=== PATIENT | female | born 1970 | race Two or more races ===

== ENCOUNTER 2023-03-29 14:20 | Emergency (ER) | payer OTHER, SELFPAY ==
--- NOTE | 2023-03-29 14:47 | ED.GENADULT ---
[facility] - General Adult General Chief complaint: Eye Problems Stated complaint: eye problem Time Seen by Provider: 03/29/23 15:26 Source: patient and RN notes reviewed Mode of arrival: ambulatory Limitations: no limitations History of Present Illness HPI narrative: This is a 52-year-old female, with a history of hypertension, presenting to the emergency department with complaints of right eye pain since 10:00AM this morning. Patient states upon wakening at 10:00 a.m. this morning she has had severe right eye pain. She is unable to open her right eye on her own. She denies any eye trauma. She does not wear contact lenses. She states that her right eye is incredibly photophobic. No fevers or chills. Endorsing nausea. No vomiting. MD complaint: Right eye pain Onset (ago): hour(s) Location: eyes Radiation: non-radiation Quality: sharp Relieving factors: none Exacerbating factors: none Associated symptoms: denies other symptoms Treatments prior to arrival: none Related Data Previous Rx's Medication Instructions Recorded [id number] 3.5 1 drp ophthalmic (eye) Q6H #5 mL 03/29/23 mg/mL-10,000 unit/mL-0.1% eye drops timolol 0.5 % eye drops 1 drp ophthalmic (eye) DAILY #5 mL 03/29/23 Allergies Allergy/AdvReac Type Severity Reaction Status Date / Time No Known Allergies Allergy Verified 03/29/23 14:52 Review of Systems Review of Systems: Yes all other systems are reviewed and are negative Constitutional: Constitutional: Reports as per [facility] Social History Social History Alcohol intake: never Smoked in Last 30 Days: No Use of substances other than those prescribed or required for medical reasons: No Advance Directives: No Advance Directives Information Provided: No Physical Exam ED Vital Signs: Vital Signs - 24 hr 03/29/23 14:49 03/29/23 16:26 03/29/23 16:58 Temperature 98.6 F Pulse Rate 66 55 Respiratory Rate 20 16 18 Blood Pressure 152/96 H 164/73 H Pulse Oximetry 98 96 Oxygen Delivery Method Room Air Room Air BMI result Body Mass Index 44.1 Const General: cooperative, comfortable and in distress (sobbing, holding right eye. ) moderate Orientation/consciousness: patient oriented x3 Limitations: no limitations HENMT Head: Yes normal to inspection, Yes normocephalic and Yes atraumatic Ears: hearing grossly normal bilaterally General nose exam: Normal external nose present Face and sinus: Yes normal facial exam Mouth: Normal oral and palatal mucosa present, oropharynx normal and moist mucous membranes Throat: Yes posterior oropharynx normal Eyes Other: Patient holding right eye, Right eye with conjunctiva injected, chemosis noted, haziness to the conjunctiva, pupillary reflex is intact. +photophobia. R intraoccular pressure 49mmHg, L IOP 14mmHg Neck Neck: Yes normal visual inspection, Yes full ROM and Yes no lymphadenopathy Lymphatic: no lymphadenopathy noted Chest Chest palpation & inspection: normal inspection of the chest Resp Effort & Inspection: normal respiratory effort and able to speak in complete sentences Auscultation: clear to auscultation bilaterally, no crackles, no rales, no rhonchi and no wheezes Cardio Rate: regular rate Rhythm: regular rhythm Heart sounds: S1 normal heart sound present and S2 normal heart sound present GI Inspection: Yes normal to inspection Skin General skin exam: no rashes or lesions noted Trauma: no lacerations or abrasions Wounds: no wounds Neuro General: patient oriented x3 and moves all extremities Extrem General: Yes normal to inspection Right upper extremity: normal to inspection Left upper extremity: normal to inspection Right lower extremity: normal to inspection Left lower extremity: normal to inspection Course Course Course Narrative: This is a rapid medical exam: Additional HPI, ROS, PE not included below will be deferred to primary provider. Patient is a 52-year-old female presenting to the emergency department with complaint of right eye pain since waking this morning. States she washed her face with water only. Has foreign body sensation to right eye as well as headache and nausea. (+) photophobia. Tearful in triage. Erythematous conjunctiva to R eye. Denies any known injury to eye. Plan: Visual acuity Reevaluation(s) Reevaluation #1: Administered 1 drop of timolol 0.5%, 1 drop of apraclonidine 1%, and 1 drop pilocarpine 2% per uptodate recommendations and attending physician, Dr. Cuevas. Time: 16:17 Reevaluation #2: Dr. Murillo returned call, recommends timolol and apraclonidine. Does not recommend continuing pilocarpine or starting IV acetazolamide. Will recheck pressures at 04:57PM and return call. Time: 16:32 Reevaluation #3: Intraoccular pressure 37mmHg after receiving medications. Spoke to Dr. Murillo, who recommends second round of 1 drop of apraclonidine and 1 drop of timolol. He wishes to see pt in his office in 20 minutes for slit lamp examination. Time: 17:08 Additional Reevaluation(s): 1720 - brought pt over with security patrol driver in wheelchair. Pt was seen by Dr. Murillo in his office. Slit lamp examination was performed, no evidence of closed angle glaucoma seen. IOP now 18mmHg on the right. Pt symptoms improved, able to open eye, still having mild photophobia. Dr. Murillo diagnosing pt with episcleritis. Recommends polymyxin/neomycin/dexamethasone drops QID and timolol once in the morning. Advised pt to call office to be seen friday or friday. Pt brought back to the ER. Given discharge instructions. Given urgent return precautions. Pt understands and agrees with plan. Pt stable for discharge. Consultations Consultation #1: Dr. Murillo - see above Medications Administered Discontinued Medications Generic Name Dose Route Start Last Admin Trade Name Freq PRN Reason Stop Dose Admin Acetaminophen 975 mg 03/29/23 14:54 03/29/23 14:58 Acetaminophen 325 Mg Tablet PO 03/29/23 14:55 975 mg ONCE ONE Administration Apraclonidine HCl 1 drop 03/29/23 15:56 03/29/23 16:20 Apraclonidine Hcl 1 % Oph Lainey 1 Each Dro[place]rette EYE-RIGHT 03/29/23 15:57 1 drop ONCE ONE Administration Morphine Sulfate 4 mg 03/29/23 16:03 03/29/23 16:22 Morphine Sulfate 4 Mg/Ml Cartridge IVPUSH 03/29/23 16:04 4 mg ONCE ONE Administration Protocol Ondansetron HCl 4 mg 03/29/23 16:03 03/29/23 16:22 Ondansetron Hcl 4 Mg/2 Ml Vial IVPUSH 03/29/23 16:04 4 mg ONCE ONE Administration Pilocarpine HCl 1 drop 03/29/23 15:56 03/29/23 16:22 Pilocarpine Hcl 1 % Oph Lainey 15 Ml Drpbtl EYE-RIGHT 03/29/23 15:57 1 drop ONCE ONE Administration Timolol Maleate 1 drop 03/29/23 15:56 03/29/23 16:19 Timolol Maleate 0.5 % Oph Lainey 5 Ml Drbtl EYE-RIGHT 03/29/23 15:57 1 drop ONCE ONE Administration Medical Decision Making Medical Decision Making [facility] Narrative: 52-year-old female presenting to the emergency department for evaluation of right eye pain since 10:00 a.m. this morning. On arrival, blood pressure 152/96. Patient visibly uncomfortable, holding right eye in severe pain, crying. Right conjunctiva is injected, pupillary reflex intact. Right eye pressure 49mmHg. Left eye 13mmHg. Symptoms and clinical findings concerning for acute closed angle glaucoma. Patient has no history of glaucoma, or family medical history of glaucoma. 1350 - Urgently consulted my attending physician Dr. Cuevas, given intra-ocular pressures. Call out to Dr. Glez, STAT. Ordered timolol, apraclonidine, and pilocarpine eye drops. IV insert with IV morphine and IV zofran. Basic labs ordered. Differential Diagnosis Differential Diagnoses: The differential diagnosis associated with the presentation includes Acute closed angle glaucoma, open angle glaucoma, retinal detachment, iritis, scleritis, conjunctivitis Admission/Observation Consideration of admission/observation: Escalation of care including admission/observation considered Escalation of care including admission considered given initial intra-ocular pressures of 49mmHg on the right. Consult Healthcare Provider Management of the patient was discussed with: Inclinometer Tester Dr. Glez Lab Data [facility] Lab Attestation statement: I reviewed the patient's lab results. No leukocytosis, chemistry WNL. 03/29/23 16:15 03/29/23 16:15 Labs: Lab Results 03/29/23 03/29/23 03/29/23 Range/Units 16:15 16:15 16:15 WBC 6.5 (4.8-10.8) X10*3/uL RBC 5.14 (4.20-5.50) X10*6/uL Hgb 14.0 (12.0-16.0) g/dl Hct 41.7 (37.0-47.0) % MCV 81.1 (80.0-98.0) fL MCH 27.2 (27.0-33.0) pg MCHC 33.6 (31.0-35.0) g/dl RDW 13.0 (11.0-16.0) % Plt Count 245 (160-400) X10*3/uL MPV 11.8 (9.4-12.3) fL Immature Gran % (Auto) 0.3 (0.0-0.4) % Neut % (Auto) 53.9 (45-73) % Lymph % (Auto) 35.0 (20-40) % [place] % (Auto) 7.8 (2-11) % Eos % (Auto) 1.8 (0-4) % Baso % (Auto) 1.2 (0-2) % Lymph # (Auto) 2.3 (1.2-4.9) X10*3/uL [place] # (Auto) 0.5 (0.1-1.2) X10*3/uL Eos # (Auto) 0.1 (0.0-0.4) X10*3/uL Baso # (Auto) 0.1 (0.0-0.2) X10*3/uL Abs Immat Gran (auto) 0.02 (0.00-0.03) X10*3/uL Absolute Neuts (auto) 3.5 (2.0-8.3) x10*3/uL Absolute Nucleated RBC 0.000 (0.0-0.012) X10*3/uL Nucleated RBC % (auto) 0.0 (0.0-0.2) /100WBC ESR (0-20) MM/HR PT 11.5 (11.1-13.3) SEC INR 0.9 (0.9-1.1) APTT 28.0 (26.0-36.4) SEC Sodium 144 (135-145) mmol/L Potassium 3.6 (3.3-5.1) mmol/L Chloride 103 (96-108) mmol/L Carbon Dioxide 28 (22-29) mmol/L Anion Gap 17 (12-20) BUN 10 (9-16) mg/dL Creatinine 0.77 (0.5-1.4) mg/dL Estim Creat Clear Calc 101.0 Estimated GFR > 60 Random Glucose 115 (60-115) mg/dL Calcium 10.5 H (8.4-10.2) mg/dL Total Bilirubin 0.6 (0.0-1.0) mg/dL Direct Bilirubin 0.2 (0.0-0.5) mg/dL AST 18 (5-31) U/L ALT 13 (0-31) U/L Alkaline Phosphatase 70 (39-117) U/L C-Reactive Protein 0.44 (< or = 0.50) mg/dL Total Protein 7.8 (6.5-8.0) g/dL Albumin 4.3 (3.5-5.0) g/dL 03/29/23 Range/Units 16:16 WBC (4.8-10.8) X10*3/uL RBC (4.20-5.50) X10*6/uL Hgb (12.0-16.0) g/dl Hct (37.0-47.0) % MCV (80.0-98.0) fL MCH (27.0-33.0) pg MCHC (31.0-35.0) g/dl RDW (11.0-16.0) % Plt Count (160-400) X10*3/uL MPV (9.4-12.3) fL Immature Gran % (Auto) (0.0-0.4) % Neut % (Auto) (45-73) % Lymph % (Auto) (20-40) % [place] % (Auto) (2-11) % Eos % (Auto) (0-4) % Baso % (Auto) (0-2) % Lymph # (Auto) (1.2-4.9) X10*3/uL [place] # (Auto) (0.1-1.2) X10*3/uL Eos # (Auto) (0.0-0.4) X10*3/uL Baso # (Auto) (0.0-0.2) X10*3/uL Abs Immat Gran (auto) (0.00-0.03) X10*3/uL Absolute Neuts (auto) (2.0-8.3) x10*3/uL Absolute Nucleated RBC (0.0-0.012) X10*3/uL Nucleated RBC % (auto) (0.0-0.2) /100WBC ESR 7 (0-20) MM/HR PT (11.1-13.3) SEC INR (0.9-1.1) APTT (26.0-36.4) SEC Sodium (135-145) mmol/L Potassium (3.3-5.1) mmol/L Chloride (96-108) mmol/L Carbon Dioxide (22-29) mmol/L Anion Gap (12-20) BUN (9-16) mg/dL Creatinine (0.5-1.4) mg/dL Estim Creat Clear Calc Estimated GFR Random Glucose (60-115) mg/dL Calcium (8.4-10.2) mg/dL Total Bilirubin (0.0-1.0) mg/dL Direct Bilirubin (0.0-0.5) mg/dL AST (5-31) U/L ALT (0-31) U/L Alkaline Phosphatase (39-117) U/L C-Reactive Protein (< or = 0.50) mg/dL Total Protein (6.5-8.0) g/dL Albumin (3.5-5.0) g/dL Prescription Management I considered prescription management with: Pain Medication and Antibiotic Chronic Conditions Patient?s care impacted by: Hypertension Critical Care Time Critical Care Time Critical Care Time: Yes Total Critical Care Time: 60 Attestation: I have personally provided critical care time exclusive of time spent on separately billable procedures. Time includes review of lab data, radiology results, discussion with consultants, and monitoring for potential decompensation. Intervention performed as documented. Discharge Plan Discharge Clinical Impression: Episcleritis Patient Disposition: Home, Self-Care Instructions: Glaucoma (ED) Additional Instructions: Please use antibiotic/steroidal eye drops as directed. Only use timolol drops once in the morning. Please follow up with Dr. Murillo - call on friday at 07:30AM. If any new or worsening symptoms occur please return for re-evaluation. Prescriptions: New timolol 0.5 % drops 1 drp ophthalmic (eye) DAILY Qty: 5 0RF Rx Instructions: 1 drop in right eye once in the morning. neomycin-polymyxin B-dexameth 3.5mg/mL-10,000 unit/mL-0.1 % drops,suspension 1 drp ophthalmic (eye) Q6H Qty: 5 0RF Referrals: Lowell Murillo [Physician] - Interventions: ED Discharge Assessment Last Done: 03/29/23 17:39 Discharge Date/Time: 03/29/23 17:40
[2023-03-29 14:49] VITALS: BP 152/96; PULSE 66; RESP 20; TEMP 37; O2SAT 98; BMI 44.1
[2023-03-29] MEDS: Acetaminophen 325 MG TABLET 975 MG PO (14:58)
[2023-03-29] MEDS: timoloL maleate 0.5 % Oph Sol 5 ML DRBTL 1 DROP EYE-RIGHT (16:19)
[2023-03-29] MEDS: Apraclonidine HCl 1 % Oph Sol 1 EACH DROPERETTE 1 DROP EYE-RIGHT (16:20)
[2023-03-29] MEDS: Morphine Sulfate 4 MG/ML CARTRIDGE IVPUSH (16:22)
[2023-03-29] MEDS: PILOCARPINE HCL 1% 1 DROP EYE-RIGHT (16:22)
[2023-03-29] MEDS: ondansetron HCL 4 MG/2 ML VIAL IVPUSH (16:22)
[2023-03-29 16:26] VITALS: BP 164/73; PULSE 55; RESP 16; O2SAT 96
[2023-03-29 16:28] LABS: MANUAL DIFF FLAG NO
[2023-03-29 16:35] LABS: INTERNATIONAL NORM RATIO 0.9 (0.9-1.1); Prothrombin Time 11.5 SEC (11.1-13.3)
[2023-03-29 16:37] LABS: Basophils Absolute Auto 0.1 X10*3/uL (0.0-0.2); Basophils Percent Auto 1.2 % (0-2); Eosinophils Absolute Auto 0.1 X10*3/uL (0.0-0.4); Eosinophils Percent Auto 1.8 % (0-4); Hematocrit 41.7 % (37.0-47.0); Imm Gran Abs Auto 0.02 X10*3/uL (0.00-0.03); Imm Gran Pct Auto 0.3 % (0.0-0.4); Lymphocytes Absolute Auto 2.3 X10*3/uL (1.2-4.9); Mean Corpuscular HGB Conc 33.6 g/dl (31.0-35.0); Mean Corpuscular Hemoglobin 27.2 pg (27.0-33.0); Mean Corpuscular Volume 81.1 fL (80.0-98.0); Mean Platelet Volume 11.8 fL (9.4-12.3); Monocytes Absolute Auto 0.5 X10*3/uL (0.1-1.2); Monocytes Percent Auto 7.8 % (2-11); Neutrophils Absolute Auto 3.5 x10*3/uL (2.0-8.3); Neutrophils Percent Auto 53.9 % (45-73); Platelet Count 245 X10*3/uL (160-400); Red Blood Count 5.14 X10*6/uL (4.20-5.50); White Blood Count 6.5 X10*3/uL (4.8-10.8)
--- NOTE | 2023-03-29 16:57 | PC.NURSE ---
pt sleeping, reparations even and unlabored.
[2023-03-29 16:58] VITALS: RESP 18
[2023-03-29 17:17] LABS: Alanine Aminotransferase 13 U/L (0-31); Albumin Level 4.3 g/dL (3.5-5.0); Alkaline Phosphatase 70 U/L (39-117); Anion Gap 17 (12-20); Aspartate Amino Transferase 18 U/L (5-31); Bilirubin Direct 0.2 mg/dL (0.0-0.5); Bilirubin Total 0.6 mg/dL (0.0-1.0); Blood Urea Nitrogen 10 mg/dL (9-16); Calcium 10.5 mg/dL (8.4-10.2); Carbon Dioxide 28 mmol/L (22-29); Chloride 103 mmol/L (96-108); Estimated Glomerular Filt Rate > 60; Glucose Random 115 mg/dL (60-115); Potassium 3.6 mmol/L (3.3-5.1); Sodium 144 mmol/L (135-145); Total Protein 7.8 g/dL (6.5-8.0)
[2023-03-29 18:28] LABS: Erythrocyte Sedimentation Rate 7 MM/HR (0-20)
[2023-03-29 19:37] LABS: C Reactive Protein 0.44 mg/dL (< or = 0.50)
== END 2023-03-29 17:40 | disposition home or self-care (01) ==
PROVIDERS: Physician Assistant Medical; Emergency Provider Student in an Organized Health Care Education/Training Program
DX: H15.101 Unspecified episcleritis, right eye (principal); H57.11 Ocular pain, right eye
CPT/HCPCS: 36415; 80048; 80076; 85025; 85610; 85652; 85730; 86140; 96374; 96375; 99284; 99285; J2270; J2405

== ENCOUNTER 2023-05-28 16:17 | Emergency (ER) | payer OTHER, SELFPAY ==
--- NOTE | ~2023-05-28 | XR_ITS ---
EXAMINATION: XR CHEST CLINICAL INFORMATION: Cough and wheezing. COMPARISON: None available. TECHNIQUE: 2 views of the chest were obtained. FINDINGS: The cardiomediastinal silhouette is normal. There is no focal lung consolidation or pleural effusion. The bony structures and soft tissues are unremarkable. XR/XR chest 2V IMPRESSION: No active cardiopulmonary disease.
--- NOTE | 2023-05-28 16:32 | ED_ITS ---
HPI - URI/Sore Throat General Chief Complaint: Upper Respiratory Symptoms Stated Complaint: cough, wheezing. OTC meds arent working Time Seen by Provider: 05/28/23 20:34 Source: patient Mode of arrival: ambulatory Limitations: no limitations History of Present Illness HPI Narrative: Patient comes to the emergency room complaining of 4 days of coughing. No shortness of breath. Patient denies history of asthma or COPD. Patient denies any fever chills, no sore throat. Related Data Previous Rx's Medication Instructions Recorded [id number] 3.5 1 drp ophthalmic (eye) Q6H #5 mL 03/29/23 mg/mL-10,000 unit/mL-0.1% eye drops timolol 0.5 % eye drops 1 drp ophthalmic (eye) DAILY #5 mL 03/29/23 albuterol sulfate 90 mcg/actuation 2 puff inhalation Q4-6H PRN 05/28/23 aerosol inhaler shortness of breath or wheezing #6.7 grams benzonatate 100 mg capsule 100 mg PO TID PRN cough #14 caps 05/28/23 prednisone 50 mg tablet 50 mg PO DAILY #5 tabs 05/28/23 Allergies Allergy/AdvReac Type Severity Reaction Status Date / Time No Known Allergies Allergy Verified 05/28/23 16:33 Review of Systems Review of Systems: Constitutional : No Weight loss, No Fever, No Chills, No Night Sweats, No Fatigue, No Malaise ENT/Mouth : No Hearing loss, No Ear Pain, No Nasal Congestion, No Sinus Pain, No Hoarseness, No sore throat, No Rhinorrhea, No Swallowing Difficulty Eyes: No Eye Pain, No Swelling, No Redness, No Foreign Body, No Discharge, No Vision Changes Cardiovascular : No Chest Pain, No SOB, No Dyspnea on Exertion, No Orthopnea, No Edema, No Palpitations Respiratory : Complaining of dry cough No Sputum, No Wheezing, No Smoke Exposure, No Dyspnea Gastrointestinal : No Nausea, No Vomiting, No Diarrhea, No Constipation, No abdominal Pain, No Hematochezia, No Melena Genitourinary : no irregular bleeding, No Dysuria, No Urinary Frequency, No Hematuria, No Urinary Incontinence, No Urgency, No Flank Pain, No Urinary Flow Changes, No Hesitancy Musculoskeletal : No joint pain, No Myalgias, No Joint Swelling Skin : No Skin Lesions, No rash Neuro : No Weakness, No Numbness, No Paresthesias, No Loss of Consciousness, No Dizziness, No Headache Psych : No Anxiety/Panic, No Depression, No SI/HI/AH/VH, No Social Issues, Heme/Lymph: No Bruising, No Bleeding,No Lymphadenopathy Endocrine : No Polyuria, No Polydipsia, No Temperature Intolerance PMFSH Social History Social History Alcohol intake: never Smoked in Last 30 Days: No Use of substances other than those prescribed or required for medical reasons: No Advance Directives: No Advance Directives Information Provided: No Physical Exam Vital Signs: Vital Signs: Last Vital Signs Temp 98.9 F 05/28/23 22:00 Pulse 94 05/28/23 22:00 Resp 16 05/28/23 22:00 BP 159/89 H 05/28/23 22:00 Pulse Ox 97 05/28/23 22:00 O2 Del Method Room Air 05/28/23 22:00 BMI result Body Mass Index 44.3 Const: Other: Appearance: Alert. Oriented X3. No acute distress. Eyes: Pupils equal, round and reactive to light. ENT: Pharynx normal. Neck: Normal inspection. Neck supple. No lymph nodes noted. No crepitus CVS: Normal heart rate and rhythm. Pulses normal. Normal S1 and S2 Respiratory: No respiratory distress. Breath sounds normal mild bilateral diffuse wheezing, with good air movement bilaterally, No rales Abdomen: Soft and nontender. No rigidity. No distention. Skin: Skin warm and dry. Normal skin color. Normal skin turgor. Extremities: No lower extremity edema. No Lacerations. No Rash Neuro: Oriented X 3. No motor deficit. No sensory deficit. Moving all extremities. No slurred speech. CN 2 through 12 grossly intact Psych: calm, cooperative, normal affect Course Course Course Narrative: RME:?52 yo Fw/ pmhx of HTN presents with wheezing and cough x4 days with assoc CP on coughing. Denies fever, SOB, sore throat. No hx of COPD or asthma. No known sick contacts. Shallow breath sounds with expiratory wheezes. CXR, flu/covid, bronch protocol ordered. Full HPI, ROS and PE to be performed by the primary ED provider. Medications Administered Discontinued Medications Generic Name Dose Route Start Last Admin Trade Name Freq PRN Reason Stop Dose Admin Albuterol Sulfate 2 puff 05/28/23 20:16 05/28/23 20:20 Albuterol Sulfate 90 Mcg 8 Gm Inhaler INHALE 05/28/23 20:17 2 puff ONCE ONE Administration Medical Decision Making Medical Decision Making [facility] Narrative: My interpretation of labs: Negative for COVID influenza. -my interpretation of chest x-ray: No pneumonia -patient wheezing on physical exam, patient given a a prescription for prednisone and albuterol, discussed with the patient that this does not mean that she has asthma COPD, this prescriptions are for symptomatic relief Differential Diagnosis Differential Diagnoses: The differential diagnosis associated with the presentation includes (Pneumonia, bronchitis, viral URI) Lab Data [facility] Lab Attestation statement: I reviewed the patient's lab results. Labs: Lab Results 05/28/23 Range/Units 18:34 COVID-19 ([facility]EDY) Negative (Negative) COVID-19 Clin Com See Note Influenza Type A ([facility]) Negative (Negative) Influenza Type B ([facility]ON) Negative (Negative) Influenza A & B Note See Note Independent Interpretation I performed an independent interpretation of an: Plain X-Ray Radiology Impression Discussion of test interpretation with radiology: I have reviewed the radiologist's reading. Radiologist Impression: FINDINGS: The cardiomediastinal silhouette is normal. There is no focal lung consolidation or pleural effusion. The bony structures and soft tissues are unremarkable. XR/XR chest 2V IMPRESSION: No active cardiopulmonary disease. Prescription Management I considered prescription management with: Antibiotic (I consider giving the patient antibiotics. However, patient has no pneumonia on chest x-ray, this is likely a viral infection.) Discharge Plan Discharge Clinical Impression: Bronchitis Patient Disposition: Home, Self-Care Instructions: Acute Bronchitis (ED) Additional Instructions: Please follow-up with your primary care physician tomorrow. If you have any worsening or new symptoms, please return to the emergency room or call 911 Prescriptions: New benzonatate 100 mg capsule 100 mg PO TID PRN (Reason: cough) Qty: 14 0RF prednisone 50 mg tablet 50 mg PO DAILY Qty: 5 0RF albuterol sulfate 90 mcg/actuation HFA aerosol inhaler 2 puff inhalation Q4-6H PRN (Reason: shortness of breath or wheezing) Qty: 6.7 0RF No Action timolol 0.5 % drops 1 drp ophthalmic (eye) DAILY Qty: 5 0RF Rx Instructions: 1 drop in right eye once in the morning. neomycin-polymyxin B-dexameth 3.5mg/mL-10,000 unit/mL-0.1 % drops,suspension 1 drp ophthalmic (eye) Q6H Qty: 5 0RF Stand Alone Forms: Work/School Release Interventions: ED Discharge Assessment Last Done: 05/28/23 22:57 Discharge Date/Time: 05/28/23 22:58
[2023-05-28 16:33] VITALS: BP 173/91; PULSE 82; RESP 18; TEMP 36.6; O2SAT 99; BMI 44.3
[2023-05-28 19:00] LABS: COVID-19 Test Negative (Negative); IDNOW Serial# BCCEAD1C
[2023-05-28 19:01] LABS: IDNOW Serial# 9DB6401D; Influenza A Negative (Negative); Influenza B2 Negative (Negative)
[2023-05-28 19:42] VITALS: BP 152/89; PULSE 84; RESP 16; TEMP 37.1; O2SAT 98
[2023-05-28] MEDS: Albuterol Sulfate 90 MCG 8 GM INHALER 2 PUFF INHALE (20:20)
[2023-05-28 20:21] VITALS: PULSE 89; RESP 18; O2SAT 98
[2023-05-28 22:00] VITALS: BP 159/89; PULSE 94; RESP 16; TEMP 37.2; O2SAT 97
== END 2023-05-28 22:58 | disposition home or self-care (01) ==
PROVIDERS: Physician Assistant Medical; Emergency Provider Emergency Medicine; PCP Family Medicine
DX: J40 Bronchitis, not specified as acute or chronic (principal); R05.9 Cough, unspecified; Z20.822 Contact with and (suspected) exposure to COVID-19; Z20.828 Contact with and (suspected) exposure to other viral communicable diseases; Z79.899 Other long term (current) drug therapy
CPT/HCPCS: 71046; 87502; 87635; 94640; 94664; 99284

== ENCOUNTER 2023-07-25 20:31 | Emergency (ER) | payer OTHER, SELFPAY ==
--- NOTE | ~2023-07-25 | XR_ITS ---
EXAMINATION: XR LUMBOSACRAL SPINE CLINICAL INFORMATION: Low back pain, injured at work. COMPARISON: None available. TECHNIQUE: Three views of the lumbosacral spine. FINDINGS: There is normal lumbar lordosis. The vertebral heights, alignment and disc heights are normal. There is no visible acute fracture, dislocation or subluxation seen. No aggressive lytic or sclerotic process seen. The paravertebral soft tissues are normal. SI joints are symmetrical and normal. XR/XR lumbar spine 2-3V IMPRESSION: Unremarkable cervical spine examination.
[2023-07-25 20:47] VITALS: BP 159/79; PULSE 63; RESP 16; TEMP 36.2; O2SAT 99; BMI 38.1
--- NOTE | 2023-07-25 20:51 | ED_ITS ---
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 No bladder or bowel incontinence Patient states her pain goes across her entire lower back Her pain is a constant dull ache but she occasionally gets short stabbing decreased pain. Related Data Previous Rx's Medication Instructions Recorded vrhxxixf-kkegohsih-uwwairml 3.5 1 drp ophthalmic (eye) Q6H #5 mL 03/29/23 mg/mL-10,000 unit/mL-0.1% eye drops timolol 0.5 % eye drops 1 drp ophthalmic (eye) DAILY #5 mL 03/29/23 albuterol sulfate 90 mcg/actuation 2 puff inhalation Q4-6H PRN 05/28/23 aerosol inhaler shortness of breath or wheezing #6.7 grams benzonatate 100 mg capsule 100 mg PO TID PRN cough #14 caps 05/28/23 prednisone 50 mg tablet 50 mg PO DAILY #5 tabs 05/28/23 cyclobenzaprine 10 mg tablet 10 mg PO TID PRN muscle spasm #20 07/25/23 tabs tramadol 50 mg tablet 50 mg PO Q6H PRN severe pain 07/25/23 (scale score 7-10) #12 tabs Allergies Allergy/AdvReac Type Severity Reaction Status Date / Time No Known Allergies Allergy Verified 05/28/23 16:33 Review of Systems Constitutional: Constitutional: Denies chills and Denies fever(s) ENT: Denies neck pain Cardiovascular: Cardiovascular: Denies chest pain and Denies dyspnea Respiratory: Respiratory: Denies cough and Denies dyspnea Gastrointestinal: Gastrointestinal: Denies abdominal pain, Denies nausea and Denies vomiting Genitourinary: Genitourinary: Denies other (Denies incontinence) Musculoskeletal: Musculoskeletal: Reports back pain, Denies neck pain, Denies radiating pain into limb and Reports stiffness PMFSH Social History Alcohol intake: never Advance Directives: No Advance Directives Information Provided: No Physical Exam ED Vital Signs: Vital Signs - 24 hr 07/25/23 20:47 Temperature 97.1 F Pulse Rate 63 Respiratory Rate 16 Blood Pressure 159/79 H Pulse Oximetry 99 Oxygen Delivery Method Room Air BMI result Body Mass Index 38.1 Const General: healthy appearing, comfortable, no acute distress, alert and awake Nutritional Appearance: well nourished Orientation/consciousness: patient oriented x3 HENMT Head: Yes normocephalic and Yes atraumatic Eyes Eyelids: Yes eyelids normal Conjunctivae: conjunctivae normal Sclerae: sclerae normal Corneas: corneas normal Pupils: Equal, round and reactive pupils present EOM: EOMs intact bilaterally Neck Neck: Yes full ROM Resp Effort & Inspection: normal respiratory effort, able to speak in complete sentences and not labored Cardio Rate: regular rate Rhythm: regular rhythm Back/Spine/Pelvis Other: Patient has mild tenderness across the lumbar paraspinous region. No vertebral tenderness. No step-off deformities. Negative straight leg raise bilaterally Skin General skin exam: elasticity normal Neuro General: patient oriented x3 Cranial nerves: Yes Equal, round and reactive pupils present and Yes Bilaterally intact EOM present Cognition (Neuro): normal cognition Extrem Other: Moving all extremities well without any obvious deformities Course Course Course Narrative: This is a rapid medical exam: Additional HPI, ROS, PE not included below will be deferred to primary provider. Patient is a 52-year-old female presenting to the emergency department with complaint of lumbar pain since last night. Patient states she was attempting to catch a client to prevent them from falling and injured her back. Patient denies falling. States pain does not radiate down legs. Denies any saddle anesthesia or bowel or bladder incontinence. Took Tylenol around 4pm, states she does not take ibuprofen because she does not like how it makes her feel. Plan: x-ray Medical Decision Making Medical Decision Making MDM Narrative: 52-year-old male presents for evaluation of lower back pain after an injury yesterday. She describes a sudden jerking motion when trying to catch an individual who was falling. The patient likely strained her back. She has no warning signs for cauda equina syndrome. X-ray negative for fracture. Patient will be treated symptomatically with cyclobenzaprine and tramadol Differential Diagnosis Differential Diagnoses: The differential diagnosis associated with the presentation includes Muscle strain Lower back pain Sciatica Radiculopathy Disc herniation Independent Interpretation I performed an independent interpretation of an: Plain X-Ray (No obvious fractures of the lumbar spine.) Radiology Impression Discussion of test interpretation with radiology: I have reviewed the rad iologist's reading. ( Unremarkable cervical spine examination. ) Radiologist Impression: The radiology report suggests an unremarkable cervical spine examination. On review of the images it was certainly and lumbar spine x-ray. The examination description is also lumbar sacral spine. Discharge Plan Discharge Clinical Impression: Acute low back pain Patient Disposition: Home, Self-Care Instructions: Acute Low Back Pain (ED) Additional Instructions: Your x-ray did not show any evidence of fracture. Use ibuprofen/Tylenol for pain. Use cyclobenzaprine as needed for muscle spasms. Use tramadol for more severe or breakthrough pain These medications may make you sleepy, do not drink alcohol or drive after taking it May also use warm compresses Prescriptions: New tramadol 50 mg tablet 50 mg PO Q6H PRN (Reason: severe pain (scale score 7-10)) Qty: 12 0RF cyclobenzaprine 10 mg tablet 10 mg PO TID PRN (Reason: muscle spasm) Qty: 20 0RF No Action benzonatate 100 mg capsule 100 mg PO TID PRN (Reason: cough) Qty: 14 0RF prednisone 50 mg tablet 50 mg PO DAILY Qty: 5 0RF albuterol sulfate 90 mcg/actuation HFA aerosol inhaler 2 puff inhalation Q4-6H PRN (Reason: shortness of breath or wheezing) Qty: 6.7 0RF timolol 0.5 % drops 1 drp ophthalmic (eye) DAILY Qty: 5 0RF Rx Instructions: 1 drop in right eye once in the morning. neomycin-polymyxin B-dexameth 3.5mg/mL-10,000 unit/mL-0.1 % drops,suspension 1 drp ophthalmic (eye) Q6H Qty: 5 0RF Stand Alone Forms: Work/School Release
[2023-07-25] MEDS: Cyclobenzaprine HCl 10 MG TABLET PO (23:37)
[2023-07-25] MEDS: traMADoL HCL 50 MG TABLET PO (23:37)
== END 2023-07-25 23:47 | disposition home or self-care (01) ==
PROVIDERS: Emergency Provider Internal Medicine; PCP Family Medicine
DX: S39.92XA Unspecified injury of lower back, initial encounter (principal); W01.0XXA Fall on same level from slipping, tripping and stumbling without subsequent striking against object, initial encounter; Y93.9 Activity, unspecified; Y92.9 Unspecified place or not applicable; Y99.0 Civilian activity done for income or pay; Z79.899 Other long term (current) drug therapy
CPT/HCPCS: 72100; 99283

== ENCOUNTER 2024-01-03 19:25 | Emergency (ER) | payer OTHER, SELFPAY ==
[2024-01-03 19:45] VITALS: BP 208/97; PULSE 65; RESP 20; TEMP 37.1; O2SAT 99; BMI 43.6
--- NOTE | 2024-01-03 20:15 | PC.NURSE ---
DURING VISUAL ACUITY PT CANNOT OPEN R eye due to pain and blurry vision. L eye acuity 20/40
[2024-01-03 20:57] VITALS: BP 200/102; PULSE 67; RESP 18; O2SAT 98
--- NOTE | 2024-01-03 20:58 | ED.EYEPROB ---
HPI - Eye Problem General Chief complaint: Eye Problems Stated complaint: RT eye swelling and pain Time Seen by Provider: 01/03/24 20:58 Source: patient Mode of arrival: ambulatory Limitations: no limitations History of Present Illness HPI Narrative: 53-year-old female with a history of hypertension who presents emergency department for evaluation of pain, swelling and photophobia of her right eye. Patient states when she woke up this morning she felt fine. 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 She states that her vision was very foggy and she is having difficulty seeing at this time. She states she is having moderate to severe pain in her eye as well. She states that her eye is swollen and is tearing. Patient states that this happens to her every year around this time. The patient was seen in the emergency department 03/29/2023 with similar symptoms. At that time the patient had elevated intra-ocular pressures in her right eye of 49 with normal pressures in her left eye. In reviewing the record the patient was initially treated for acute glaucoma, was seen by our fitness consultant, Dr. Murillo in his office and he determined that she did not have closed angle glaucoma and his diagnosis was episcleritis. Patient was treated in the emergency department with timolol, pilocarpine and apraclonidine drops with improvement of her intra-ocular pressure. Patient was discharged with timolol 0.5% drops once in the morning and polymyxin neomycin dexamethasone drops every 6 hours. Patient does have a history of hypertension states she did not take her antihypertensive medication this morning. Related Data Previous Rx's ?Medication ?Instructions ?Recorded gqymgter-jvkpbrzix-lgntbtqz 3.5 1 drp ophthalmic (eye) Q6H #5 mL 03/29/23 mg/mL-10,000 unit/mL-0.1% eye drops timolol 0.5 % eye drops 1 drp ophthalmic (eye) DAILY #5 mL 03/29/23 albuterol sulfate 90 mcg/actuation 2 puff inhalation Q4-6H PRN 05/28/23 aerosol inhaler shortness of breath or wheezing #6.7 grams benzonatate 100 mg capsule 100 mg PO TID PRN cough #14 caps 05/28/23 prednisone 50 mg tablet 50 mg PO DAILY #5 tabs 05/28/23 cyclobenzaprine 10 mg tablet 10 mg PO TID PRN muscle spasm #20 07/25/23 tabs tramadol 50 mg tablet 50 mg PO Q6H PRN severe pain 07/25/23 (scale score 7-10) #12 tabs acetaminophen 500 mg tablet 1,000 mg (2 x 500 mg) PO Q6H PRN 01/03/24 (Tylenol Extra Strength) fever or pain #20 tabs timolol 0.5 % eye drops 1 drp ophthalmic (eye) DAILY 30 01/03/24 days #5 mL tramadol 50 mg tablet 50 mg PO TID PRN pain 3 days #10 01/03/24 tabs Allergies Allergy/AdvReac Type Severity Reaction Status Date / Time No Known Allergies Allergy Verified 01/03/24 19:46 Review of Systems Review of Systems: Yes all other systems are reviewed and are negative [facility] Past Medical History [facility] Narrative: Past medical history: Hypertension, episcleritis of the right eye. 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 She denies tobacco, alcohol and drug use. Social History Social History Alcohol intake: never Smoked in Last 30 Days: No Advance Directives: No Advance Directives Information Provided: No Physical Exam Vital Signs: Vital Signs: Last Vital Signs Temp 0 F L 01/04/24 00:14 Pulse 60 01/04/24 00:14 Resp 16 01/04/24 00:14 BP 198/77 H 01/04/24 00:14 Pulse Ox 98 01/04/24 00:14 O2 Del Method Room Air 01/04/24 00:14 BMI result Body Mass Index 43.6 Elevated blood pressure of 200/102-the patient did not take her antihypertensive medications this morning Exam: Exam: General: Awake, alert in no distress Eye exam: Right eye intra-ocular pressure: 49 Left eye intra-ocular pressure: 22 Patient's sclera is injected conjunctiva and sclera are swollen, patient has severe photophobia and can not tolerate any light in her eye Medications Administered Discontinued Medications Generic Name Dose Route Start Last Admin Trade Name Freq PRN Reason Stop Dose Admin Acetaminophen 975 mg 01/03/24 21:19 01/03/24 21:24 Acetaminophen 325 Mg Tablet PO 01/03/24 21:20 975 mg ONCE ONE Administration Amlodipine Besylate 5 mg 01/03/24 21:31 01/03/24 21:42 Amlodipine Besylate 5 Mg Tablet PO 01/03/24 21:32 5 mg ONCE ONE Administration Protocol Apraclonidine HCl 1 drop 01/03/24 21:31 01/03/24 22:35 Apraclonidine Hcl 1 % Oph Lainey 1 Each Droperette EYE-RIGHT 01/03/24 21:32 1 drop ONCE ONE Administration Neomycin/Polymyxin/Hydrocortisone 1 drop 01/03/24 21:31 01/03/24 22:35 Neomycin/Polymyxin/Hc Oph Susp 7.5 Ml Bottle EYE-RIGHT 01/03/24 21:32 1 drop ONCE ONE Administration Tramadol HCl 50 mg 01/03/24 21:31 01/03/24 21:42 Tramadol Hcl 50 Mg Tablet PO 01/03/24 21:32 50 mg ONCE ONE Administration Medical Decision Making Medical Decision Making [facility] Narrative: 53-year-old female with a history of hypertension who presents emergency department for evaluation of pain, swelling and photophobia of her right eye started around 11:00 hours and has gotten progressively worse. Patient now complains of severe photophobia and foggy vision in the right eye. Patient had a similar presentation 03/29/2023 and had episcleritis at that time. Patient's vital signs did reveal an elevated blood pressure but the patient did not take her medications today. Differential diagnosis: ?Includes but is not limited to glaucoma, episcleritis, conjunctivitis Course: 21:51 I did discuss the patient's presentation with our covering fitness consultant, Dr. Murillo. He recommended giving the patient apraclonidine 1 drop to the right eye and to remeasure her pressure after 60 minutes. Patient will also be treated with polymyxin, neomycin, hydrocortisone 2 drops to right eye as well Her pain will be treated with Tylenol 975 mg orally, tramadol 50 mg orally. The patient was also given amlodipine 5 mg orally for her elevated blood pressure. 23:35 The patient's repeat right eye intra-ocular pressure was 35. The patient is feeling significantly better. I did have a discussion again with Dr. Murillo regarding this patient. He recommended continuing the neomycin, polymyxin and hydrocortisone, 2 drops 4 times a day to the right eye x1 week and timolol 0.5% 1 drop to the right eye in the morning Patient was advised to contact Dr. Murillo's below was office on Friday for follow-up appointment. Admission/Observation Consideration of admission/observation: Escalation of care including admission/observation considered Consult Healthcare Provider Management of the patient was discussed with: [employer] Manager (Gill Box Tender, Dr. Murillo) Prescription Management I considered prescription management with: Other (Glaucoma/elevated IOP tgfk-pksjwjj-eexitwm 0.5% and neomycin polymyxin B hydrocortisone ophthalmologic suspension) Chronic Conditions Patient?s care impacted by: Hypertension Critical Care Time Critical Care Time Critical Care Time: Yes Total Critical Care Time: 35 Attestation: Critical Care: The patient was critically ill with a high probability of imminent or life threatening deterioration. I spent greater than 30 minutes of discontinuous time evaluating the patient,delivering critical care at the bedside, discussing and evaluating pertinent data with consultants. Critical care time does not include time spent performing separately billable procedures or teaching. Total time spent performing critical care was 35 minutes. Discharge Plan Discharge Clinical Impression: Episcleritis of right eye Patient Disposition: Home, Self-Care Additional Instructions: Your symptoms are consistent with episcleritis which is inflammation of the eye causing increased pressure. This is different than glaucoma. Use timolol 0.5% eyedrops, 1 eye drop in your right eye every morning for 1 month Use the neomycin polymyxin with hydrocortisone suspension, 2 drop 4 times a day to the right eye for 1 week. Take Tylenol (acetaminophen) 500 mg pills, 2 pills every 6 hours as needed for pain or fever. Take tramadol 50 mg pills, 1 pill every 6 hours as needed for pain. Continue taking your blood pressure medication as prescribed. Call our fitness consultant, Dr. Murillo on Friday for follow-up appointment. He has not in the office on Friday. Please return to the emergency department if your symptoms get worse or if you develop any symptoms that are concerning to you. Prescriptions: New timolol 0.5 % drops 1 drp ophthalmic (eye) DAILY 30 Days Qty: 5 0RF tramadol 50 mg tablet 50 mg PO TID PRN (Reason: pain) 3 Days Qty: 10 0RF Rx Instructions: Patient may request partial fill acetaminophen [Tylenol Extra Strength] 500 mg tablet 1,000 mg PO Q6H PRN (Reason: fever or pain) Qty: 20 0RF No Action benzonatate 100 mg capsule 100 mg PO TID PRN (Reason: cough) Qty: 14 0RF prednisone 50 mg tablet 50 mg PO DAILY Qty: 5 0RF albuterol sulfate 90 mcg/actuation HFA aerosol inhaler 2 puff inhalation Q4-6H PRN (Reason: shortness of breath or wheezing) Qty: 6.7 0RF tramadol 50 mg tablet 50 mg PO Q6H PRN (Reason: severe pain (scale score 7-10)) Qty: 12 0RF cyclobenzaprine 10 mg tablet 10 mg PO TID PRN (Reason: muscle spasm) Qty: 20 0RF timolol 0.5 % drops 1 drp ophthalmic (eye) DAILY Qty: 5 0RF Rx Instructions: 1 drop in right eye once in the morning. neomycin-polymyxin B-dexameth 3.5mg/mL-10,000 unit/mL-0.1 % drops,suspension 1 drp ophthalmic (eye) Q6H Qty: 5 0RF Interventions: ED Discharge Assessment Last Done: 01/04/24 00:14 Discharge Date/Time: 01/04/24 00:15 Print Language: Indian
[2024-01-03] MEDS: Acetaminophen 325 MG TABLET 975 MG PO (21:24)
[2024-01-03] MEDS: amLODIPine Besylate 5 MG TABLET PO (21:42)
[2024-01-03] MEDS: traMADoL HCL 50 MG TABLET PO (21:42)
--- NOTE | 2024-01-03 21:48 | PC.NURSE ---
Called pharmacy, they will bring down eye drops
[2024-01-03] MEDS: Apraclonidine HCl 1 % Oph Sol 1 EACH DROPERETTE 1 DROP EYE-RIGHT (22:35)
[2024-01-03 22:36] VITALS: BP 198/77; PULSE 60; RESP 16; O2SAT 98
[2024-01-04 00:14] VITALS: BP 198/77; PULSE 60; RESP 16; TEMP -17.7; TEMP 0; O2SAT 98
== END 2024-01-04 00:15 | disposition home or self-care (01) ==
PROVIDERS: Emergency Provider Emergency Medicine Emergency Medical Services
DX: H15.101 Unspecified episcleritis, right eye (principal); H57.11 Ocular pain, right eye; H53.8 Other visual disturbances; I10 Essential (primary) hypertension
CPT/HCPCS: 99284

== ENCOUNTER 2024-03-27 08:11 | Emergency (ER) | payer OTHER, SELFPAY ==
[2024-03-27 08:14] VITALS: BP 175/93; PULSE 75; RESP 18; TEMP 36.4; O2SAT 98; BMI 43.9
--- NOTE | 2024-03-27 09:07 | ED.EYEPROB ---
HPI - Eye Problem General Chief complaint: Eye Problems Stated complaint: R eye swelling, pain Time Seen by Provider: 03/27/24 08:21 Source: patient Mode of arrival: ambulatory Limitations: no limitations History of Present Illness HPI Narrative: Patient is a 53-year-old female with past medical history of hypertension who presents emergency department for evaluation of swelling pain and photophobia to her right eye. Reports onset yesterday night while she was at work as a [employer]. She denies possibility of any foreign body or environmental exposure getting into the eye. She reports that her vision is very blurry and she feels a pressure to the eye. She states that this typically happens at least once a year but she states she was also seen already once this year back in December with her similar presentation. She states that the intra-ocular pressure is typically elevated in the 40s. She has been seen by the main line station engineer, Dr. Murillo in the past as they thought that she was experiencing closed angle glaucoma. On review of records she rather was diagnosed with episcleritis. She denies associated dizziness, lightheadedness, headache, nausea, vomiting. Related Data Previous Rx's ?Medication ?Instructions ?Recorded [id number] 3.5 1 drp ophthalmic (eye) Q6H #5 mL 03/29/23 mg/mL-10,000 unit/mL-0.1% eye drops timolol 0.5 % eye drops 1 drp ophthalmic (eye) DAILY #5 mL 03/29/23 albuterol sulfate 90 mcg/actuation 2 puff inhalation Q4-6H PRN 05/28/23 aerosol inhaler shortness of breath or wheezing #6.7 grams benzonatate 100 mg capsule 100 mg PO TID PRN cough #14 caps 05/28/23 prednisone 50 mg tablet 50 mg PO DAILY #5 tabs 05/28/23 cyclobenzaprine 10 mg tablet 10 mg PO TID PRN muscle spasm #20 07/25/23 tabs tramadol 50 mg tablet 50 mg PO Q6H PRN severe pain 07/25/23 (scale score 7-10) #12 tabs acetaminophen 500 mg tablet 1,000 mg (2 x 500 mg) PO Q6H PRN 01/03/24 (Tylenol Extra Strength) fever or pain #20 tabs timolol 0.5 % eye drops 1 drp ophthalmic (eye) DAILY 30 01/03/24 days #5 mL tramadol 50 mg tablet 50 mg PO TID PRN pain 3 days #10 01/03/24 tabs tramadol 50 mg tablet 50 mg PO Q8H PRN pain #10 tabs 03/27/24 Allergies Allergy/AdvReac Type Severity Reaction Status Date / Time No Known Allergies Allergy Verified 03/27/24 08:17 [facility] Past Medical History Attestation statement: The following information was validated with the patient. Source: old records reviewed Social History Social History Alcohol intake: never Smoked in Last 30 Days: No Use of substances other than those prescribed or required for medical reasons: No Advance Directives: No Advance Directives Information Provided: No Do you have a plan to hurt others: No Plan Physical Exam Vital Signs: Vital Signs: Last Vital Signs Temp 97.1 F 03/27/24 14:04 Pulse 59 03/27/24 14:04 Resp 17 03/27/24 14:04 BP 157/94 H 03/27/24 14:04 Pulse Ox 97 03/27/24 14:04 O2 Del Method Room Air 03/27/24 14:04 BMI result Body Mass Index 43.9 Appearance: Alert.?Oriented to person, place and time. No acute distress.?Normal affect. Eyes: Pupils equal, round and reactive to light. Bright intra-ocular pressure of 62, left intra-ocular pressure of 19. Right eye with excessive tearing, mild periorbital swelling, right sclera injected, positive chemosis, positive photophobia? ENT: Pharynx normal.?? Neck: Normal inspection.? Neck supple.?? CVS: Heart sounds normal. Normal heart rate and rhythm.? Pulses normal.?? Respiratory: No respiratory distress.? Lung sounds clear to auscultation bilaterally?? Abdomen: Soft and non-tender. Normoactive bowel sounds. Skin: Skin warm and dry.? Normal skin color.? Extremities: No lower extremity edema.? Neuro: Moves all extremities spontaneously. Sensation intact bilaterally. CN II-XII intact. No focal neuro deficits. Ambulates with normal steady gait. Course Reevaluation(s) Reevaluation #1: Repeat right intra-ocular pressure of 42, reports minimal change in pain, she has subsequently received tramadol for pain. In addition timolol 0.5% solution 1 drop, and neomycin/polymyxin/HC 2 drops; which patient will be discharged home with from the department. Time: 11:30 Reevaluation #2: Repeat intra-ocular pressure 38, reports significant improvement in pain, she was able to tolerate lytes at this time. She is eating and drinking normally. We discussed the significant for and so following up outpatient with Ophthalmology and worrisome signs and symptoms that would warrant emergent re-evaluation in the emergency department. She verbalized understanding. Time: 13:49 Medications Administered Discontinued Medications Generic Name Dose Route Start Last Admin Trade Name Tia PRN Reason Stop Dose Admin Apraclonidine HCl 1 drop 03/27/24 09:32 03/27/24 10:19 Apraclonidine Hcl 1 % Oph Lainey 1 Each Droperette EYE-RIGHT 03/27/24 09:33 1 drop ONCE ONE Administration Neomycin/Polymyxin/Hydrocortisone 2 drop 03/27/24 11:44 03/27/24 12:46 Neomycin/Polymyxin/Hc Oph Susp 7.5 Ml Bottle EYE-RIGHT 03/27/24 11:45 2 drop ONCE ONE Administration Timolol Maleate 1 drop 03/27/24 11:44 03/27/24 12:46 Timolol Maleate 0.5 % Oph Lainey 5 Ml Drbtl EYE-RIGHT 03/27/24 11:45 1 drop ONCE ONE Administration Tramadol HCl 50 mg 03/27/24 11:06 03/27/24 11:16 Tramadol Hcl 50 Mg Tablet PO 03/27/24 11:07 50 mg ONCE ONE Administration Medical Decision Making Medical Decision Making MDM Narrative: Patient is a 53-year-old female past medical history of hypertension who presents emergency department for evaluation of recurrent pain swelling to her right eye as per HPI with progressive worsening. Recent emergency department visit 01/03/2024 initial right intra-ocular pressure 49 left was 22, she received at her apraclonidine 1 drop to the right eye with plan to remeasure after 60 minutes, she also received polymyxin neomycin hydrocortisone 2 drops to the right eye and repeat pressure was 35 she was evaluated and diagnosed again with episcleritis, discharged home with timolol drops as well as tramadol and Tylenol. She was supposed to follow-up with Dr. Murillo, unfortunately she states that she missed her follow-up appointment as she was working and has not scheduled a follow-up visit. Today, her right intra-ocular pressure is 62, her left intra-ocular pressure is 19 Differential Diagnosis Differential Diagnoses: The differential diagnosis associated with the presentation includes (Closed angle glaucoma, episcleritis) External Record Review External record reviewed: Other (RESEARCH PROJECT COORDINATOR) Critical Care Time Critical Care Time Critical Care Time: Yes Total Critical Care Time: 35 Attestation: I personally attest to this critical care time spent taking care of the patient exclusive of all other billable procedures was approximately 35 minutes including initial evaluation of patient, ordering tests, frequent and recurrent intra-ocular pressure evaluation, medical consultation, documentation, re-evaluation. Discharge Plan Discharge Clinical Impression: Episcleritis of right eye Patient Disposition: Home, Self-Care Additional Instructions: You were provided with 2 different eyedrops from the emergency department; 1. Timolol 0.5% drops, instill 1 drop to the right eye daily in the morning, begin taking this tomorrow 2. Neomycin polymyxin hydrocortisone suspension, instill 2 drops 4 times a day for 1 week. It is very important that follow-up with the guest experience specialist, our main line station engineer Dr. Murillo, you will need to call his office 1st thing Friday as the office is closed on Friday. You may return back to emergency department any new or worsening symptoms or concerns. Continue taking all your other medication as prescribed including her blood pressure medication. You can take Tylenol 500 mg, 2 tablets (1,000mg) every 4-6 hours as needed for pain, but not to exceed 3 doses daily (3,000mg). For pain that is unrelieved by Tylenol, a prescription for tramadol to use every 6 hours as needed, has been sent to your pharmacy. This medication may make you drowsy, you should not drive, drink alcohol, or work while taking this medication? Prescriptions: New tramadol 50 mg tablet 50 mg PO Q8H PRN (Reason: pain) Qty: 10 0RF No Action benzonatate 100 mg capsule 100 mg PO TID PRN (Reason: cough) Qty: 14 0RF prednisone 50 mg tablet 50 mg PO DAILY Qty: 5 0RF albuterol sulfate 90 mcg/actuation HFA aerosol inhaler 2 puff inhalation Q4-6H PRN (Reason: shortness of breath or wheezing) Qty: 6.7 0RF tramadol 50 mg tablet 50 mg PO Q6H PRN (Reason: severe pain (scale score 7-10)) Qty: 12 0RF cyclobenzaprine 10 mg tablet 10 mg PO TID PRN (Reason: muscle spasm) Qty: 20 0RF timolol 0.5 % drops 1 drp ophthalmic (eye) DAILY 30 Days Qty: 5 0RF tramadol 50 mg tablet 50 mg PO TID PRN (Reason: pain) 3 Days Qty: 10 0RF Rx Instructions: Patient may request partial fill acetaminophen [Tylenol Extra Strength] 500 mg tablet 1,000 mg PO Q6H PRN (Reason: fever or pain) Qty: 20 0RF timolol 0.5 % drops 1 drp ophthalmic (eye) DAILY Qty: 5 0RF Rx Instructions: 1 drop in right eye once in the morning. neomycin-polymyxin B-dexameth 3.5mg/mL-10,000 unit/mL-0.1 % drops,suspension 1 drp ophthalmic (eye) Q6H Qty: 5 0RF Referrals: Lowell Murillo [Physician] - Interventions: ED Discharge Assessment Last Done: 03/27/24 14:04 Discharge Date/Time: 03/27/24 14:04 Print Language: [place]
[2024-03-27] MEDS: Apraclonidine HCl 1 % Oph Sol 1 EACH DROPERETTE 1 DROP EYE-RIGHT (10:19)
[2024-03-27] MEDS: traMADoL HCL 50 MG TABLET PO (11:16)
[2024-03-27 11:21] VITALS: BP 188/94; PULSE 60; RESP 18; O2SAT 98
--- NOTE | 2024-03-27 11:23 | PC.NURSE ---
right eye pain 10/10. Eye drop given at 10:19. Tramadol given for pain 11:16.
[2024-03-27] MEDS: timoloL maleate 0.5 % Oph Sol 5 ML DRBTL 1 DROP EYE-RIGHT (12:46)
[2024-03-27 13:42] VITALS: BP 157/94; PULSE 59; RESP 17; TEMP 36.2; O2SAT 97
[2024-03-27 14:04] VITALS: BP 157/94; PULSE 59; RESP 17; TEMP 36.2; O2SAT 97
== END 2024-03-27 14:04 | disposition home or self-care (01) ==
PROVIDERS: Emergency Provider Emergency Medicine
DX: H15.101 Unspecified episcleritis, right eye (principal); H57.11 Ocular pain, right eye; I10 Essential (primary) hypertension; Z79.899 Other long term (current) drug therapy
CPT/HCPCS: 99283; 99284

== ENCOUNTER 2024-07-16 13:36 | Outpatient (REF) | payer OTHER, SELFPAY ==
[2024-07-16 14:00] LABS: MANUAL DIFF FLAG NO
[2024-07-16 14:50] LABS: Basophils Absolute Auto 0.1 X10*3/uL (0.0-0.2); Basophils Percent Auto 1.1 % (0-2); Eosinophils Absolute Auto 0.2 X10*3/uL (0.0-0.4); Eosinophils Percent Auto 3.1 % (0-4); Hematocrit 39.9 % (37.0-47.0); Hemoglobin 13.3 g/dl (12.0-16.0); Imm Gran Abs Auto 0.01 X10*3/uL (0.00-0.03); Imm Gran Pct Auto 0.2 % (0.0-0.4); Lymphocytes Absolute Auto 2.1 X10*3/uL (1.2-4.9); Mean Corpuscular HGB Conc 33.3 g/dl (31.0-35.0); Mean Corpuscular Hemoglobin 26.5 pg (27.0-33.0); Mean Corpuscular Volume 79.6 fL (80.0-98.0); Mean Platelet Volume 11.5 fL (9.4-12.3); Monocytes Absolute Auto 0.4 X10*3/uL (0.1-1.2); Monocytes Percent Auto 6.7 % (2-11); Neutrophils Absolute Auto 2.8 x10*3/uL (2.0-8.3); Neutrophils Percent Auto 50.9 % (45-73); Platelet Count 264 X10*3/uL (160-400); Red Blood Count 5.01 X10*6/uL (4.20-5.50); Red Cell Distribution Width 13.3 % (11.0-16.0); White Blood Count 5.5 X10*3/uL (4.8-10.8)
[2024-07-16 15:07] LABS: C Reactive Protein 0.56 mg/dL (< or = 0.50)
[2024-07-16 15:09] LABS: Rheumatoid Factor < 13.0 IU/mL (<15.0)
[2024-07-16 15:29] LABS: Erythrocyte Sedimentation Rate 8 MM/HR (0-20)
[2024-07-20 09:43] LABS: Anti Nuclear Antibody Screen NEGATIVE (NEGATIVE)
[2024-07-21 20:23] LABS: Treponema pallidum Ab FTA ABS Nonreactive (Nonreactive)
[2024-07-21 21:59] LABS: Angiotensin Converting Enzyme 43 U/L (9-67)
== END 2024-07-16 13:37 | disposition home or self-care (01) ==
LOC: HO.LAB 13:36
PROVIDERS: Visit Provider Ophthalmology
DX: H20.9 Unspecified iridocyclitis (principal)
CPT/HCPCS: 36415; 82164; 85025; 85652; 86038; 86140; 86431; 86780

== ENCOUNTER 2024-11-26 23:13 | Emergency (ER) | payer OTHER, SELFPAY ==
[2024-11-26 23:20] VITALS: BP 148/91; PULSE 65; RESP 17; TEMP 36.8; O2SAT 98; BMI 47.1
[2024-11-26] MEDS: Acetaminophen 325 MG TABLET 975 MG PO (23:25)
[2024-11-27 01:52] VITALS: BP 138/53; PULSE 68; RESP 16; TEMP 36.9; O2SAT 95
[2024-11-27 06:00] VITALS: BP 140/66; PULSE 58; RESP 20; TEMP 36.4; O2SAT 96
--- NOTE | 2024-11-27 07:11 | PC.NURSE ---
Pt reports 10/10 pain R eye, worse when opened; no periorbital swelling noted; pt denies injury or known allergies; sclera very red, no discharge, copious teaes produced when pt tries to open eye; visual acuity L 20/40, R 20/50; pt does not wear corrective lenses/contacts
--- NOTE | 2024-11-27 07:50 | ED_ITS ---
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 been seen here before for same comes here for 2 days of redness of the eye with pain no discharge Related Data Previous Rx's ?Medication ?Instructions ?Recorded [id number]-[id number] 3.5 1 drp ophthalmic (eye) Q6H #5 mL 03/29/23 mg/mL-10,000 unit/mL-0.1% eye drops timolol 0.5 % eye drops 1 drp ophthalmic (eye) DAILY #5 mL 03/29/23 albuterol sulfate 90 mcg/actuation 2 puff inhalation Q4-6H PRN 05/28/23 aerosol inhaler shortness of breath or wheezing #6.7 grams benzonatate 100 mg capsule 100 mg PO TID PRN cough #14 caps 05/28/23 prednisone 50 mg tablet 50 mg PO DAILY #5 tabs 05/28/23 cyclobenzaprine 10 mg tablet 10 mg PO TID PRN muscle spasm #20 07/25/23 tabs tramadol 50 mg tablet 50 mg PO Q6H PRN severe pain 07/25/23 (scale score 7-10) #12 tabs acetaminophen 500 mg tablet 1,000 mg (2 x 500 mg) PO Q6H PRN 01/03/24 (Tylenol Extra Strength) fever or pain #20 tabs timolol 0.5 % eye drops 1 drp ophthalmic (eye) DAILY 30 01/03/24 days #5 mL tramadol 50 mg tablet 50 mg PO TID PRN pain 3 days #10 01/03/24 tabs tramadol 50 mg tablet 50 mg PO Q8H PRN pain #10 tabs 03/27/24 neomycin 3.5 mg-polymyxin 10,000 2 drp ophthalmic-Right Q4H 7 days 11/27/24 unit-hydrocort 10 mg/mL eye #7.5 mL drop,susp timolol maleate 0.5 % once daily 1 drp ophthalmic (eye) DAILY #5 mL 11/27/24 eye drops Allergies Allergy/AdvReac Type Severity Reaction Status Date / Time No Known Allergies Allergy Verified 11/26/24 23:22 Review of Systems Review of Systems: Yes all other systems are reviewed and are negative [facility] Social History Social History Alcohol intake: never Smoked in Last 30 Days: No Use of substances other than those prescribed or required for medical reasons: No Advance Directives: No Advance Directives Information Provided: Yes Do you have a plan to hurt others: No Plan Patient : No Physical Exam Vital Signs: Vital Signs: Last Vital Signs Temp 97.5 F 11/27/24 06:00 Pulse 58 11/27/24 06:00 Resp 20 11/27/24 06:00 BP 140/66 H 11/27/24 06:00 Pulse Ox 96 11/27/24 06:00 O2 Del Method Room Air 11/27/24 06:00 BMI result Body Mass Index 47.1 Appearance: Alert. Oriented X3. No acute distress. Eyes: PERRLA, right IOP 42 left 20 diffuse redness of the sclera on the right eye no foreign body seen cornea and anterior chamber normal ENT: Pharynx normal. Oral Mucosa moist Neck: Normal inspection. Neck supple. CVS: Normal heart rate and rhythm. Pulses normal. Respiratory: No respiratory distress. Equal air entry bilateral, no wheezing/rales/rhonchi Abdomen: Soft and nontender. Bowel sounds are present, Skin: Skin warm and dry. Normal skin color. Normal skin turgor. Extremities: No lower extremity edema. No calf tenderness Neuro: Oriented X 3. Medications Administered Discontinued Medications Generic Name Dose Route Start Last Admin Trade Name Freq PRN Reason Stop Dose Admin Acetaminophen 975 mg 11/26/24 23:23 11/26/24 23:25 Acetaminophen 325 Mg Tablet PO 11/26/24 23:24 975 mg ONCE ONE Administration Neomycin/Polymyxin/Hydrocortisone 2 drop 11/27/24 08:03 11/27/24 08:32 Neomycin/Polymyxin/Hc Oph Susp 7.5 Ml Bottle EYE-RIGHT 11/27/24 08:04 2 drop ONCE ONE Administration Timolol Maleate 1 drop 11/27/24 08:03 11/27/24 08:32 Timolol Maleate 0.5 % Oph Lainey 5 Ml Drbtl EYE-RIGHT 11/27/24 08:04 1 drop ONCE ONE Administration Medical Decision Making Medical Decision Making [facility] Narrative: Will prescribe timolol and neomycin polymyxin HC eye drops Discharge Plan Discharge Clinical Impression: Episcleritis of right eye, Glaucoma Patient Disposition: Home, Self-Care Instructions: Glaucoma (ED) Additional Instructions: Your pressure in right eye was 42 and left was 20 You need to start on timolol eyedrops 1 drop in right eye once a day Neomycin polymyxin drops instill 2 drops 4 times a day for 1 week Follow with your restaurant hostess Prescriptions: New timolol maleate 0.5 % drops, once daily 1 drp ophthalmic (eye) DAILY Qty: 5 0RF [id number] 3.5-10,000-10 mg-unit-mg/mL drops,suspension 2 drp ophthalmic-Right Q4H 7 Days Qty: 7.5 0RF No Action benzonatate 100 mg capsule 100 mg PO TID PRN (Reason: cough) Qty: 14 0RF prednisone 50 mg tablet 50 mg PO DAILY Qty: 5 0RF albuterol sulfate 90 mcg/actuation HFA aerosol inhaler 2 puff inhalation Q4-6H PRN (Reason: shortness of breath or wheezing) Qty: 6.7 0RF tramadol 50 mg tablet 50 mg PO Q6H PRN (Reason: severe pain (scale score 7-10)) Qty: 12 0RF cyclobenzaprine 10 mg tablet 10 mg PO TID PRN (Reason: muscle spasm) Qty: 20 0RF timolol 0.5 % drops 1 drp ophthalmic (eye) DAILY 30 Days Qty: 5 0RF tramadol 50 mg tablet 50 mg PO TID PRN (Reason: pain) 3 Days Qty: 10 0RF Rx Instructions: Patient may request partial fill acetaminophen [Tylenol Extra Strength] 500 mg tablet 1,000 mg PO Q6H PRN (Reason: fever or pain) Qty: 20 0RF timolol 0.5 % drops 1 drp ophthalmic (eye) DAILY Qty: 5 0RF Rx Instructions: 1 drop in right eye once in the morning. neomycin-polymyxin B-dexameth 3.5mg/mL-10,000 unit/mL-0.1 % drops,suspension 1 drp ophthalmic (eye) Q6H Qty: 5 0RF tramadol 50 mg tablet 50 mg PO Q8H PRN (Reason: pain) Qty: 10 0RF Referrals: Lowell Murillo [Physician] - 1 week Stand Alone Forms: Work/School Release Interventions: ED Discharge Assessment Last Done: 11/27/24 08:37 Print Language: Lithuanian
[2024-11-27] MEDS: timoloL maleate 0.5 % Oph Sol 5 ML DRBTL 1 DROP EYE-RIGHT (08:32)
[2024-11-27 08:37] VITALS: BP 144/69; PULSE 62; RESP 20; TEMP 36.4; O2SAT 96
== END 2024-11-27 08:38 | disposition home or self-care (01) ==
PROVIDERS: Emergency Provider Internal Medicine; PCP Family Medicine
DX: H15.101 Unspecified episcleritis, right eye (principal); H40.89 Other specified glaucoma
CPT/HCPCS: 99283; 99284